=== PATIENT | female | born 1960 | race Caucasian/White ===

== ENCOUNTER 2018-05-18 07:10 | Inpatient (IN) ==
[2018-05-18] MEDS ORDERED: PANTOPRAZOLE 40 MG VIAL IV STA (08:19)
[2018-05-18] MEDS ORDERED: SODIUM CHLORIDE 0.9% 1,000 ML IV STA (08:19)
[2018-05-18] MEDS ORDERED: ONDANSETRON 4 MG/2 ML VIAL IV STA (08:19)
[2018-05-18] MEDS ORDERED: INSULIN LISPRO 100 UNIT/ML SUBCUT STA (08:23)
[2018-05-18 08:30] LABS: Basophils % 0.1 % (0.0-0.8); Hematocrit 24.7 VOL% (35.7-47.0); Hemoglobin 7.6 GM/DL (12.0-16.0); Immature Granulocytes % 0.4 %; Immature Granulocytes Absolute 0.05 #; Lymphocytes # 1.5 10*3/uL (1.4-4.0); Lymphocytes % 11.5 % (21.3-54.2); Mean Corpuscular HGB Conc 30.8 GM/DL (32-36); Mean Corpuscular Hemoglobin 27 PG (27-34); Mean Corpuscular Volume 86.7 FL (87-102); Mean Platelet Volume 12.7 FL (9.6-12.0); Monocytes # 1.2 10*3/uL (0.11-0.8); Monocytes % 9.1 % (1.7-12.7); Neutrophils % 78.9 % (38.7-73.9); Platelet Count 94 T/CUMM (130-400); Red Blood Count 2.85 MC/CUMM (3.8-5.5); Red Cell Distribution Width 19.3 % (9.3-17.3); White Blood Count 12.7 T/CUMM (4-12)
[2018-05-18 08:35] LABS: INR 1.5
[2018-05-18] MEDS ORDERED: SODIUM CHLORIDE 0.9% 1,000 ML IV PRN (08:40)
[2018-05-18 08:41] LABS: Albumin 2.4 G/DL (3.4-5.0); Bilirubin,Total 1.7 MG/DL (0.2-1.0); Calcium 8.1 MG/DL (8.5-10.1); Osmolality,Calculated 308.7 MOS/KG (273-304); Total Protein 5.5 G/DL (6.4-8.3)
[2018-05-18] MEDS ORDERED: ONDANSETRON 4 MG/2 ML VIAL IV PRN (08:53)
[2018-05-18] MEDS ORDERED: ACETAMINOPHEN 325 MG TABLET PO PRN (08:53)
[2018-05-18 09:20] LABS: Hypochromasia 1+
[2018-05-18 09:22] LABS: Platelet Estimate Normal
[2018-05-18] MEDS ORDERED: PROPOFOL 200 MG/20 ML VIAL IV ONE (10:00)
[2018-05-18] MEDS: SODIUM CHLORIDE 0.9% 1,000 ML IV SCH ×2 (10:00→21:24)
[2018-05-18] MEDS ORDERED: CALCIUM CHLORIDE 1,000 MG/10 ML VIAL IV ONE (10:00)
[2018-05-18] MEDS ORDERED: ETOMIDATE 20 MG/10 ML VIAL IV ONE (10:00)
[2018-05-18] MEDS: DOCUSATE SODIUM 100 MG CAPSULE PO SCH ×2 (10:41→21:28)
[2018-05-18] MEDS: PANTOPRAZOLE 40 MG VIAL IV SCH (10:48)
[2018-05-18] MEDS ORDERED: LACTULOSE 160 GM/240 ML BOTTLE RECTAL ONE (11:00)
[2018-05-18] MEDS ORDERED: SUCCINYLCHOLINE 200 MG/10 ML VIAL ONE (11:37)
[2018-05-18] MEDS ORDERED: OCTREOTIDE 100 MCG/ML SYRINGE IV ONE (12:30)
[2018-05-18] MEDS: OCTREOTIDE 500 MCG in SODIUM CHLORIDE 0.9% 100 ML IV SCH (13:55)
[2018-05-18] MEDS ORDERED: LABETALOL 20 MG/4 ML SYRINGE IV ONE (14:46)
[2018-05-18] MEDS ORDERED: LABETALOL 200 MG/40 ML VIAL IV ONE ×2 (15:30→20:00)
[2018-05-18 16:51] LABS: Hematocrit 35.3 VOL% (35.7-47.0); Hemoglobin 11.2 GM/DL (12.0-16.0)
[2018-05-18] MEDS: LACTULOSE 160 GM/240 ML BOTTLE RECTAL SCH ×2 (18:24→23:30)
[2018-05-18] MEDS ORDERED: LABETALOL 200 MG/40 ML VIAL IV PRN (21:30)
[2018-05-19] MEDS: OCTREOTIDE 500 MCG in SODIUM CHLORIDE 0.9% 100 ML IV SCH ×3 (00:16→20:49)
[2018-05-19 03:04] LABS: ABG Base Excess -5.4 MMOL/L (-2.5-2.5); ABG HCO3 19.9 MMOL/L (20-26); ABG Oxygen Saturation 93.7 % (95-100); ABG PCO2 24.5 MM HG (35-48); ABG PH 7.452 (7.35-7.45); ABG TCO2 15.3 MMOL/L (23-27); Allen Test Positive
[2018-05-19] MEDS ORDERED: ETOMIDATE 20 MG/10 ML VIAL IV ONE (04:12)
[2018-05-19] MEDS ORDERED: VECURONIUM 10 MG VIAL IV ONE (04:12)
[2018-05-19 04:24] LABS: Basophils # 0.1 10*3/uL (0.0-0.2); Basophils % 0.7 % (0.0-0.8); Eosinophils % 0.6 % (0.00-10.9); Hemoglobin 12.1 GM/DL (12.0-16.0); Immature Granulocytes % 0.3 %; Immature Granulocytes Absolute 0.02 #; Lymphocytes % 29.1 % (21.3-54.2); Mean Corpuscular HGB Conc 31.8 GM/DL (32-36); Mean Corpuscular Hemoglobin 28 PG (27-34); Mean Corpuscular Volume 87.8 FL (87-102); Mean Platelet Volume 13.2 FL (9.6-12.0); Monocytes # 0.5 10*3/uL (0.11-0.8); Monocytes % 7.5 % (1.7-12.7); NRBC # 0.02 10*3/uL; Neutrophils # 4.2 10*3/uL (1.4-7.4); Neutrophils % 61.8 % (38.7-73.9); Platelet Count 179 T/CUMM (130-400); Red Blood Count 4.33 MC/CUMM (3.8-5.5); Red Cell Distribution Width 19.4 % (9.3-17.3); White Blood Count 6.8 T/CUMM (4-12)
[2018-05-19 04:37] LABS: Calcium 8.3 MG/DL (8.5-10.1); Osmolality,Calculated 323.3 MOS/KG (273-304); Potassium 4.3 MMOL/L (3.5-5.1)
[2018-05-19] MEDS ORDERED: SODIUM CHLORIDE 0.9% 500 ML IV ONE ×2 (04:40→05:05)
[2018-05-19] MEDS: PHENYLEPHRINE DRIP 40 MG/250 ML PREMIX IV PRN ×10 (04:51→23:47)
[2018-05-19] MEDS ORDERED: NOREPINEPHRINE 4 MG/4 ML VIAL IV ONE (05:03)
[2018-05-19] MEDS: NOREPINEPHRINE 8 MG in SODIUM CHLORIDE 0.9% 242 ML IV PRN ×6 (05:06→22:58)
[2018-05-19 05:19] LABS: ABG Base Excess -11.7 MMOL/L (-2.5-2.5); ABG HCO3 15.2 MMOL/L (20-26); ABG Oxygen Saturation 92.9 % (95-100); Allen Test Positive; Pt O2 Delivery Device Ventilator
[2018-05-19 05:23] LABS: ABG PH 7.123 (7.35-7.45)
[2018-05-19 05:24] LABS: Anisocytosis Slight; Macrocytosis Slight; Platelet Estimate Normal
[2018-05-19] MEDS ORDERED: SODIUM BICARBONATE 50 MEQ/50 ML SYRINGE IV ONE ×2 (05:24→05:30)
[2018-05-19 05:28] LABS: % Iron Saturation 43.3 % (18-50)
[2018-05-19 05:40] LABS: Hepatitis A Ab IgM Quant 0.24 Index; Hepatitis A Ab IgM Result Negative (Negative); Hepatitis B Core IgM Quant < 0.05 Index; Hepatitis B Core IgM Result Negative (Negative); Hepatitis B Surface Ag Quant < 0.10 Index; Hepatitis B Surface Ag Result Negative (Negative); Hepatitis C Virus Ab Quant 0.04 Index; Hepatitis C Virus Ab Result Negative (Negative)
[2018-05-19] MEDS ORDERED: SODIUM CHLORIDE 0.9% 1,000 ML IV ONE ×2 (06:06→09:51)
[2018-05-19] MEDS ORDERED: GLUCAGON 1 MG VIAL IM PRN (06:17)
[2018-05-19] MEDS ORDERED: INSULIN REGULAR 100 UNIT/ML ONE (06:24)
[2018-05-19] MEDS: INSULIN REGULAR 100 UNIT/ML SUBCUT SCH ×3 (06:30→18:20)
[2018-05-19] MEDS: LACTULOSE 160 GM/240 ML BOTTLE RECTAL SCH ×5 (06:56→22:05)
[2018-05-19 07:11] LABS: Apearance,Urine CLEAR (Clear); Bacteria,Urine Occasional /HPF (Few); Bilirubin,Urine Negative (Negative); Blood, Urine Negative (Negative); Glucose,Urine (UA) >=500 mg/dL (Negative); Ketones,Urine 5 mg/dL (Negative); Mucus,Urine Few /LPF (Occasional); Nitrite,Urine Negative (Negative); Protein,Urine Negative; RBC,Urine 1 /HPF (0-4); Squamous Epithelial Cell,Urine Occasional /HPF (0-10); Urine Color Amber (Yellow); Urine Specific Gravity 1.025 (1.001-1.035); WBC,Urine 3 /HPF (0-6)
[2018-05-19] MEDS: HYDROCORTISONE 100 MG VIAL IV SCH ×3 (07:19→22:09)
[2018-05-19 08:21] LABS: ABG Base Excess -10.1 MMOL/L (-2.5-2.5); ABG HCO3 16.4 MMOL/L (20-26); ABG Oxygen Saturation 98.8 % (95-100); ABG PCO2 34.5 MM HG (35-48); ABG PH 7.274 (7.35-7.45); ABG TCO2 14.8 MMOL/L (23-27)
[2018-05-19] MEDS ORDERED: SODIUM CHLORIDE 0.9% 2,000 ML IV ONE (08:39)
[2018-05-19] MEDS: PANTOPRAZOLE 40 MG VIAL IV SCH (08:59)
[2018-05-19] MEDS: LORazepam 2 MG/1 ML VIAL IV PRN ×3 (08:59→13:17)
[2018-05-19] MEDS: VECURONIUM 10 MG VIAL IV PRN ×2 (09:00→13:17)
[2018-05-19] MEDS: PROPOFOL 1,000 MG/100 ML BOTTLE IV SCH (09:01)
[2018-05-19] MEDS: DOCUSATE SODIUM 100 MG CAPSULE PO SCH ×2 (09:05→20:50)
[2018-05-19 09:22] LABS: Hematocrit 29.3 VOL% (35.7-47.0)
[2018-05-19 09:24] LABS: Hemoglobin 9.1 GM/DL (12.0-16.0)
[2018-05-19 09:42] LABS: INR 2.3
[2018-05-19 09:50] LABS: PT Patient Result 23.8 SECS
[2018-05-19] MEDS: SODIUM CHLORIDE 0.9% 1,000 ML IV SCH ×2 (10:30→19:02)
[2018-05-19 13:11] LABS: PT Patient Result 20.3 SECS
[2018-05-19 13:13] LABS: Hematocrit 33.1 VOL% (35.7-47.0)
[2018-05-19] MEDS: metroNIDAZOLE INJ 500 MG in PREMIX 1 EACH IV SCH ×2 (13:15→20:49)
[2018-05-19 13:48] LABS: Hemoglobin 9.5 GM/DL (12.0-16.0)
[2018-05-19] MEDS: PIPERACILLIN/TAZOBACTAM 3,375 MG in SODIUM CHLORIDE 0.9% 100 ML IV SCH ×2 (14:47→21:46)
[2018-05-19] MEDS ORDERED: cefTRIAXone 1,000 MG in SYRINGE 1 EACH IV SCH (15:30)
[2018-05-19 17:25] LABS: Hematocrit 25.2 VOL% (35.7-47.0)
[2018-05-19] MEDS ORDERED: DOPamine 800 MG/250 ML PREMIX IV ONE (17:35)
[2018-05-19 17:41] LABS: INR 2.3
[2018-05-19] MEDS: DEXTROSE 50% 25 GM/50 ML VIAL IV PRN ×3 (17:44→19:15)
[2018-05-19] MEDS: DOPamine 800 MG/250 ML PREMIX IV PRN ×2 (17:46→22:22)
[2018-05-19 17:52] LABS: PT Patient Result 23.9 SECS
[2018-05-19 18:16] LABS: Hemoglobin 7.5 GM/DL (12.0-16.0)
[2018-05-19] MEDS ORDERED: SODIUM CHLORIDE 0.9% 1,000 ML IV PRN (18:25)
[2018-05-19] MEDS: SODIUM BICARB INJ 50 MEQ in DEXTROSE 5% NACL 0.45% 1,000 ML IV SCH (19:25)
[2018-05-19 21:28] LABS: Hematocrit 33.6 VOL% (35.7-47.0)
[2018-05-19 21:41] LABS: INR 2.3
[2018-05-19 21:42] LABS: PT Patient Result 23.6 SECS
[2018-05-19 21:53] LABS: Hemoglobin 9.7 GM/DL (12.0-16.0)
[2018-05-19 22:26] LABS: Lactic Acid 13.2 MMOL/L (0.4-2.0)
[2018-05-20] MEDS: INSULIN REGULAR 100 UNIT/ML SUBCUT SCH ×3 (00:05→13:42)
[2018-05-20] MEDS ORDERED: SODIUM CHLORIDE 0.9% 1,000 ML IV PRN ×2 (00:25→06:45)
[2018-05-20 01:27] LABS: INR 2.8
[2018-05-20] MEDS: PHENYLEPHRINE DRIP 40 MG/250 ML PREMIX IV PRN ×6 (01:30→11:06)
[2018-05-20 01:31] LABS: Hematocrit 29.8 VOL% (35.7-47.0); Hemoglobin 8.7 GM/DL (12.0-16.0)
[2018-05-20] MEDS: DOPamine 800 MG/250 ML PREMIX IV PRN ×4 (01:46→12:15)
[2018-05-20] MEDS: LACTULOSE 160 GM/240 ML BOTTLE RECTAL SCH ×3 (01:56→10:36)
[2018-05-20] MEDS: SODIUM BICARB INJ 50 MEQ in DEXTROSE 5% NACL 0.45% 1,000 ML IV SCH ×2 (01:58→09:41)
[2018-05-20] MEDS: NOREPINEPHRINE 8 MG in SODIUM CHLORIDE 0.9% 242 ML IV PRN ×3 (02:14→08:38)
[2018-05-20 04:18] LABS: ABG Base Excess -26.6 MMOL/L (-2.5-2.5); ABG HCO3 5.8 MMOL/L (20-26); ABG Oxygen Saturation 75.6 % (95-100); ABG PCO2 41.7 MM HG (35-48); ABG PO2 53.9 MM HG (80-95); ABG TCO2 7.1 MMOL/L (23-27); Allen Test Positive; Pt O2 Delivery Device Ventilator
[2018-05-20] MEDS: metroNIDAZOLE INJ 500 MG in PREMIX 1 EACH IV SCH ×2 (04:30→12:23)
[2018-05-20] MEDS: PROPOFOL 1,000 MG/100 ML BOTTLE IV SCH (04:33)
[2018-05-20 04:57] LABS: ABG Base Excess -19.1 MMOL/L (-2.5-2.5); ABG HCO3 9.7 MMOL/L (20-26); ABG Oxygen Saturation 74.2 % (95-100); ABG PCO2 68.4 MM HG (35-48); ABG PO2 49.3 MM HG (80-95); ABG TCO2 13.8 MMOL/L (23-27)
[2018-05-20 04:59] LABS: ABG PH 6.889 (7.35-7.45)
[2018-05-20 05:16] LABS: INR 3.9
[2018-05-20] MEDS: PIPERACILLIN/TAZOBACTAM 3,375 MG in SODIUM CHLORIDE 0.9% 100 ML IV SCH ×2 (05:24→14:20)
[2018-05-20 05:58] LABS: Basophils % 0.1 % (0.0-0.8); Red Cell Distribution Width 18.5 % (9.3-17.3)
[2018-05-20 06:09] LABS: Eosinophils # 0.3 10*3/uL (0.0-0.87); Eosinophils % 0.8 % (0.00-10.9); Immature Granulocytes % 7.5 %; Immature Granulocytes Absolute 2.86 #; Lymphocytes # 5.6 10*3/uL (1.4-4.0); Lymphocytes % 14.8 % (21.3-54.2); Mean Corpuscular HGB Conc 27.4 GM/DL (32-36); Mean Corpuscular Hemoglobin 28 PG (27-34); Mean Corpuscular Volume 103.1 FL (87-102); Mean Platelet Volume 13.9 FL (9.6-12.0); Monocytes # 2.4 10*3/uL (0.11-0.8); Monocytes % 6.3 % (1.7-12.7); NRBC # 0.65 10*3/uL; Neutrophils # 26.8 10*3/uL (1.4-7.4); Neutrophils % 70.5 % (38.7-73.9); Platelet Count 77 T/CUMM (130-400)
[2018-05-20 06:13] LABS: Hematocrit 35.9 VOL% (35.7-47.0)
[2018-05-20 06:23] LABS: Band Neutrophils 8 % (0-10); Eosinophils 4 % (0-10); Lymphocytes 22 % (20-55); Metamyelocytes 6 %; Myelocytes 2 %; Nucleated Red Blood Cells 3 (0-5); Segmented Neutrophils 53 % (50-85); Total Cells Counted 100
[2018-05-20 06:26] LABS: Anisocytosis 1+; Burr Cells Few; Hypochromasia 1+; Macrocytosis Slight
[2018-05-20 06:27] LABS: Platelet Estimate Decreased; Polychromasia Slight
[2018-05-20] MEDS: HYDROCORTISONE 100 MG VIAL IV SCH ×2 (06:30→14:16)
[2018-05-20 06:41] LABS: HIV Antigen/Antibody Result Nonreactive (Nonreactive); Hepatitis B Surface Ag Quant < 0.10 Index; Hepatitis B Surface Ag Result Negative (Negative); Hepatitis C Virus Ab Quant 0.02 Index; Hepatitis C Virus Ab Result Negative (Negative)
[2018-05-20] MEDS: OCTREOTIDE 500 MCG in SODIUM CHLORIDE 0.9% 100 ML IV SCH (06:46)
[2018-05-20 07:08] LABS: Albumin 1.9 G/DL (3.4-5.0); Bilirubin,Total 1.9 MG/DL (0.2-1.0); Calcium 7.7 MG/DL (8.5-10.1); Osmolality,Calculated 322.4 MOS/KG (273-304); Total Protein 4.7 G/DL (6.4-8.3)
[2018-05-20] MEDS ORDERED: ALBUMIN 25% 12.5 GM in PREMIX 1 EACH IV SCH (07:30)
[2018-05-20] MEDS ORDERED: NOREPINEPHRINE 4 MG/4 ML VIAL IV ONE (08:32)
[2018-05-20] MEDS: DOCUSATE SODIUM 100 MG CAPSULE PO SCH (08:49)
[2018-05-20] MEDS: PANTOPRAZOLE 40 MG VIAL IV SCH (10:01)
[2018-05-20] MEDS ORDERED: NOREPINEPHRINE 16 MG in SODIUM CHLORIDE 0.9% 234 ML IV PRN (11:11)
[2018-05-20] MEDS ORDERED: PHENYLEPHRINE INJ 160 MG in SODIUM CHLORIDE 0.9% 234 ML IV PRN (11:11)
[2018-05-20 15:17] LABS: INR 2.5
[2018-05-20 16:24] VITALS: BP 39/24
[2018-05-22 13:59] LABS: Mitochondrial Antibody (M2) <0.1 U
== END 2018-05-20 14:47 | disposition expired | DRG 441 ==
LOC: EDBD → EDUNIT# → N.ED 07:10 → N.CC 08:53
PROVIDERS: ADMIT Family Medicine; ATTEND Family Medicine
PROC: EGDWEBL (ICD-10-PCS; 2018-05-18 13:05)